=== PATIENT | male | born 1980 | race Hispanic/Latino ===

== ENCOUNTER 2019-07-12 13:35 | Emergency (ER) | payer OTHER ==
[~2019-07-12] VITALS: Ht 160 cm; Wt 61.8 kg
[2019-07-12] MEDS ORDERED: METO100T7 PO (14:31)
[2019-07-12] MEDS ORDERED: GENV1TAB PO (14:31)
[2019-07-12] MEDS ORDERED: FLOM0.4C39 PO (14:31)
[2019-07-12] MEDS ORDERED: MULTCAP PO (14:33)
[2019-07-12] MEDS ORDERED: DRIS50003 PO (14:33)
[2019-07-12] MEDS ORDERED: METO1TAB87 PO (14:33)
--- NOTE | 2019-07-12 15:01 | REP ---
Chest, one-view Indication: Chest pain. Comparison: None Findings: The cardiac silhouette is normal in appearance for size. There is obscuration of the left hilum which may be secondary to positioning. Pulmonary vascularity is prominent. The costophrenic angles are sharp. There is no suspicious pulmonary nodule or focal consolidation. The osseous structures are intact. Impression: No evidence of pneumonia. Prominence of the pulmonary vasculature. No effusion. Obscuration of the left hilum which may be positional. Electronically Signed by Rebeca El MD 07/12/2019 02:53 P
[2019-07-12 15:43] LABS: BASO % 0.6 % (0.0-1.0); EOS # 0.1 10^3/uL (0.0-0.5); EOS % 1.8 % (0.0-3.0); HEMATOCRIT 39.4 % (42.0-52.0); HEMOGLOBIN 13.4 g/dl (13.5-17.5); LYMPH # 2.3 10^3/uL (1.5-5.0); LYMPH % 32.2 % (24.0-44.0); MEAN CORPUSCULAR HEMOGLOBIN 33.4 pg (27.0-33.0); MEAN CORPUSCULAR VOLUME 98.3 fl (80.0-96.0); MONO # 0.6 10^3/uL (0.0-0.8); MONO % 8.5 % (0.0-5.0); NEUTROPHILS # 4.1 10^3/uL (1.5-8.5); NEUTROPHILS % 56.8 % (36.0-66.0); PLATELET COUNT, AUTOMATED 245 10^3/uL (150-450); RED BLOOD COUNT 4.01 10^6/uL (4.30-6.10); WHITE BLOOD COUNT 7.2 10^3/uL (4.0-10.0)
[2019-07-12 16:12] LABS: BLOOD UREA NITROGEN 6 MG/DL (7-18); CARBON DIOXIDE LEVEL 24 MEQ/L (21-32); CHLORIDE LEVEL 111 MEQ/L (98-107); CK-MB VALUE MASS 1.3 NG/ML (<3.6); CPK CREATINE PHOSPHOKINASE 145 U/L (39-308); CREATININE FOR GFR 0.87 MG/DL (0.70-1.30); GLOMERULAR FILTRATION RATE > 60.0 (>60); GLUCOSE, FASTING 81 MG/DL (70-100); POTASSIUM SERUM 3.9 MEQ/L (3.5-5.1); SODIUM LEVEL 143 MEQ/L (136-145); TROPONIN I < 0.02 NG/ML (< 0.10)
[2019-07-12 17:33] VITALS: BP 148/89
--- NOTE | 2019-07-13 07:24 | ECGEPIP ---
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
== END 2019-07-12 17:44 | disposition home or self-care (01) ==
LOC: M ED 13:35
DX: I10 Essential (primary) hypertension (principal); R07.89 Other chest pain; Z79.899 Other long term (current) drug therapy

== ENCOUNTER 2019-07-26 19:18 | Emergency (ER) | payer OTHER ==
[~2019-07-26] VITALS: Ht 160 cm; Wt 66.1 kg
[~2019-07-26 19:18] MED LIST: DRIS50003 PO; FLOM0.4C39 PO; GENV1TAB PO; METO100T7 PO; METO1TAB87 PO; MULTCAP PO
[2019-07-26] MEDS ORDERED: NS 1,000 ML IV ONE (19:45)
[2019-07-26 20:12] LABS: BASO % 0.4 % (0.0-1.0); EOS # 0.1 10^3/uL (0.0-0.5); EOS % 1.1 % (0.0-3.0); HEMATOCRIT 40.1 % (42.0-52.0); HEMOGLOBIN 13.8 g/dl (13.5-17.5); LYMPH # 1.5 10^3/uL (1.5-5.0); LYMPH % 18.3 % (24.0-44.0); MEAN CORPUSCULAR HEMOGLOBIN 33.9 pg (27.0-33.0); MEAN CORPUSCULAR HGB CONC 34.4 g/dl (32.0-36.5); MEAN CORPUSCULAR VOLUME 98.5 fl (80.0-96.0); MONO # 0.8 10^3/uL (0.0-0.8); MONO % 10.5 % (0.0-5.0); NEUTROPHILS # 5.5 10^3/uL (1.5-8.5); NEUTROPHILS % 69.6 % (36.0-66.0); PLATELET COUNT, AUTOMATED 244 10^3/uL (150-450); RED BLOOD COUNT 4.07 10^6/uL (4.30-6.10)
[2019-07-26 20:34] LABS: BLOOD UREA NITROGEN 15 MG/DL (7-18); CARBON DIOXIDE LEVEL 22 MEQ/L (21-32); CHLORIDE LEVEL 108 MEQ/L (98-107); CK-MB VALUE MASS 1.1 NG/ML (<3.6); CPK CREATINE PHOSPHOKINASE 154 U/L (39-308); CREATININE FOR GFR 1.09 MG/DL (0.70-1.30); GLOMERULAR FILTRATION RATE > 60.0 (>60); GLUCOSE, FASTING 127 MG/DL (70-100); MB/CK RELATIVE INDEX 0.71 (< OR =4); POTASSIUM SERUM 3.8 MEQ/L (3.5-5.1); SODIUM LEVEL 141 MEQ/L (136-145); TROPONIN I < 0.02 NG/ML (< 0.10)
--- NOTE | 2019-07-26 20:38 | REP ---
CHEST, SINGLE VIEW: There is no evidence of acute infiltrate. No pleural effusion is seen. The heart is normal in size. The mediastinal silhouette is unremarkable. The visualized osseous structures are intact. IMPRESSION: No acute pulmonary disease. Electronically Signed by Ed Porter MD 07/27/2019 09:04 A
[2019-07-26 20:55] LABS: AMPHETAMINES LEVEL URINE NEGATIVE (NEGATIVE); BARBITURATES URINE NEGATIVE (NEGATIVE); BENZODIAZEPINES URINE NEGATIVE (NEGATIVE); CANNABINOIDS URINE NEGATIVE (NEGATIVE); COCAINE METABOLITE URINE NEGATIVE (NEGATIVE); METHADONE URINE NEGATIVE (NEGATIVE); OPIATES URINE NEGATIVE (NEGATIVE); PHENCYCLIDINE URINE NEGATIVE (NEGATIVE)
[2019-07-26 23:54] LABS: CK-MB VALUE MASS 1.4 NG/ML (<3.6); CPK CREATINE PHOSPHOKINASE 154 U/L (39-308); MB/CK RELATIVE INDEX 0.91 (< OR =4); TROPONIN I < 0.02 NG/ML (< 0.10)
[2019-07-27 00:01] VITALS: BP 142/82
--- NOTE | 2019-07-27 00:18 | ECGEPIP ---
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
--- NOTE | 2019-07-28 00:01 | ECGEPIP ---
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
== END 2019-07-27 00:18 | disposition home or self-care (01) ==
LOC: M ED 19:18
DX: F19.10 Other psychoactive substance abuse, uncomplicated (principal); B20 Human immunodeficiency virus [HIV] disease; R44.3 Hallucinations, unspecified; E11.9 Type 2 diabetes mellitus without complications; B19.9 Unspecified viral hepatitis without hepatic coma; F17.200 Nicotine dependence, unspecified, uncomplicated; Z79.899 Other long term (current) drug therapy